=== PATIENT | female | born 1990 | race American Indian/Alaskan Native ===

== ENCOUNTER 2020-04-03 09:43 | Outpatient (CLI) | payer MEDICAID ==
[2020-04-03] MEDS ORDERED: LACTATED RINGERS 1,000 ML ONE (09:47)
[2020-04-03] MEDS ORDERED: LACTATED RINGERS 1,000 ML IV ONE (09:54)
[2020-04-03] MEDS ORDERED: ONDANSETRON 4 MG/2 ML INJ IV NR (09:55)
[2020-04-03 10:09] VITALS: BP 117/73
== END 2020-04-03 12:44 | disposition home or self-care (01) ==
LOC: TRG 09:43 → APU 09:44 → TRG 12:44
PROVIDERS: ATTEND Obstetrics & Gynecology
DX: O21.2 Late vomiting of pregnancy (principal); O47.03 False labor before 37 completed weeks of gestation, third trimester; O13.3 Gestational [pregnancy-induced] hypertension without significant proteinuria, third trimester; O99.513 Diseases of the respiratory system complicating pregnancy, third trimester; J45.909 Unspecified asthma, uncomplicated; Z3A.31 31 weeks gestation of pregnancy
CPT/HCPCS: 59025; 96361; 96365; J2405; J7120; 96360